=== PATIENT | male | born 1960 | race Caucasian/White ===

== ENCOUNTER 2022-05-26 18:00 | Emergency (ER) | payer MEDICAID, OTHER ==
[~2022-05-26] VITALS: Ht 167.6 cm; Wt 85.0 kg
[2022-05-26 18:12] VITALS: BP 144/83
[2022-05-26] MEDS ORDERED: IBUP-2029 MT (21:08)
[2022-05-26] MEDS ORDERED: HYDROCODONE/ACETAMINOPHEN 5/325MG TABLET PO ONE (21:15)
== END 2022-05-26 21:15 | disposition home or self-care (01) ==
LOC: EDBD 18:00 → ER 18:00
DX: S60.021A Contusion of right index finger without damage to nail, initial encounter (principal); Y93.E9 Activity, other interior property and clothing maintenance; Y93.89 Activity, other specified; Y92.018 Other place in single-family (private) house as the place of occurrence of the external cause
CPT/HCPCS: 29130; 73130; 99283